=== PATIENT | male | born 1975 | race Caucasian/White ===

== ENCOUNTER 2019-10-28 17:40 | Emergency (ER) | payer SELFPAY ==
[2019-10-28] MEDS ORDERED: Sodium Chloride 0.9% 10 ML Syringe FLUSH PRN (18:43)
[2019-10-28] MEDS ORDERED: Sodium Chloride 0.9% 1,000 ML IV SCH (18:45)
--- NOTE | 2019-10-28 19:15 | EDM.PDOC ---
ED HPI GENERAL MEDICAL PROBLEM - General Chief Complaint: Neurological Problem Stated Complaint: LIGHTHEADED 2 WEEKS ALMOST PASSED OUT TENSED Time Seen by Provider: 10/28/19 18:40 Source of Information: Reports: Patient, RN Notes Reviewed - History of Present Illness INITIAL COMMENTS - FREE TEXT/NARRATIVE: 44 yr old male has been feeling weak, lightheaded, dizzy on and off for the last 3 wks. Did have some voiding sx about 3 wks ago but that went away. Has had some L ear congestion but no cough, fever, chills or difficulty breathing. Today sitting in a chair he became weak, dizzy, lightheaded, almost passed out. No chest pain. No abd pain, vomiting or diarrhea. He had an abnl stress test a few months ago, had a cardiac cath 2 months ago that was nl, no blockage. - Related Data Allergies Allergy/AdvReac Type Severity Reaction Status Date / Time No Known Allergies Allergy Verified 10/28/19 17:52 Home Meds: Home Meds Cyclobenzaprine [Flexeril] 10 mg PO ASDIRECTED 10/28/19 [History] LORazepam [Ativan] 1 tab PO ASDIRECTED PRN 10/28/19 [History] Past Medical History Genitourinary History: Reports: Renal Calculus - Past Surgical History Cardiovascular Surgical History: Reports: Other (See Below) Other Cardiovascular Surgeries/Procedures: cardiac cath, echo, stress test GI Surgical History: Reports: Cholecystectomy Social & Family History - Tobacco Use Smoking Status *Q: Never Smoker Second Hand Smoke Exposure: No - Caffeine Use Caffeine Use: Reports: None - Recreational Drug Use Recreational Drug Use: No ED ROS GENERAL - Review of Systems Review Of Systems: See Below Constitutional: Denies: Fever, Chills, Diaphoresis HEENT: Reports: No Symptoms Respiratory: Denies: Shortness of Breath, Cough Cardiovascular: Denies: Chest Pain GI/Abdominal: Denies: Abdominal Pain, Diarrhea, Nausea, Vomiting Musculoskeletal: Denies: Shoulder Pain, Arm Pain, Back Pain Skin: Denies: Rash Neurological: Reports: Dizziness. Denies: Numbness, Tingling, Trouble Speaking, Weakness ED EXAM, DIZZINESS - Physical Exam Exam: See Below General Appearance: Alert, No Apparent Distress Eye Exam: Bilateral Eye: PERRL Head Exam: Atraumatic. No: Facial Swelling Neck: Supple Respiratory/Chest: No Respiratory Distress, Lungs Clear, Normal Breath Sounds Cardiovascular: Tachycardia GI/Abdominal: Soft, Non-Tender Neurological: Alert, No Motor/Sensory Deficits Extremities: Normal Inspection. No: Pedal Edema, Leg Pain, Increased Warmth, Redness Skin Exam: Warm, Dry, Normal Color, No Rash EKG INTERPRETATION EKG Date: 10/28/19 Rhythm: Other (sinus tach) Rate (Beats/Min): 119 [place]: Normal P-Wave: Present QRS: Normal ST-T: Normal Course - Vital Signs Last Recorded V/S: Last Vital Signs Temp 98 F 10/28/19 17:50 Pulse 127 H 10/28/19 17:50 Resp 16 10/28/19 17:50 BP 148/105 H 10/28/19 17:50 Pulse Ox 97 10/28/19 17:50 - Orders/Labs/Meds Orders: Active Orders 24 hr Category Date Time Status Peripheral IV Insertion Adult [OM.PC] Stat Oth 10/28/19 18:43 Ordered Labs: Laboratory Tests 10/28/19 10/28/19 10/28/19 Range/Units 19:00 19:00 19:13 WBC 9.71 H (4.23-9.07) K/mm3 RBC 6.15 H (4.63-6.08) M/mm3 Hgb 17.1 (13.7-17.5) gm/dl Hct 50.9 (40.1-51.0) % MCV 82.8 (79.0-92.2) fl MCH 27.8 (25.7-32.2) pg MCHC 33.6 (32.2-35.5) g/dl RDW Std Deviation 42.6 (35.1-43.9) fL Plt Count 422 H (163-337) K/mm3 MPV 8.8 L (9.4-12.3) fl Neut % (Auto) 66.5 (34.0-67.9) % Lymph % (Auto) 25.1 (21.8-53.1) % [place] % (Auto) 6.7 (5.3-12.2) % Eos % (Auto) 0.9 (0.8-7.0) Baso % (Auto) 0.6 (0.1-1.2) % Neut # (Auto) 6.45 H (1.78-5.38) K/mm3 Lymph # (Auto) 2.44 (1.32-3.57) K/mm3 [place] # (Auto) 0.65 (0.30-0.82) K/mm3 Eos # (Auto) 0.09 (0.04-0.54) K/mm3 Baso # (Auto) 0.06 (0.01-0.08) K/mm3 Manual Slide Review Abnormal smear Sodium 138 (136-145) mEq/L Potassium 3.5 (3.5-5.1) mEq/L Chloride 100 (98-107) mEq/L Carbon Dioxide 28 (21-32) mEq/L Anion Gap 13.5 (5-15) BUN 8 (7-18) mg/dL Creatinine 0.8 (0.7-1.3) mg/dL Est Cr Clr Drug Dosing 120.40 mL/min Estimated GFR (MDRD) > 60 (>60) mL/min BUN/Creatinine Ratio 10.0 L (14-18) Glucose 137 H (74-106) mg/dL Calcium 9.2 (8.5-10.1) mg/dL Total Bilirubin 0.5 (0.2-1.0) mg/dL AST 45 H (15-37) U/L ALT 88 H (16-63) U/L Alkaline Phosphatase 96 (46-116) U/L Troponin I < 0.017 (0.00-0.056) ng/mL Total Protein 7.9 (6.4-8.2) g/dl Albumin 3.9 (3.4-5.0) g/dl Globulin 4.0 gm/dL Albumin/Globulin Ratio 1.0 (1-2) TSH 3rd Generation 3.048 (0.358-3.74) uIU/mL Urine Color Yellow (Yellow) Urine Appearance Clear (Clear) Urine pH 6.5 (5.0-8.0) Ur Specific [place] 1.020 (1.005-1.030) Urine Protein Negative (Negative) Urine Glucose (UA) Negative (Negative) Urine Ketones Negative (Negative) Urine Occult Blood Negative (Negative) Urine Nitrite Negative (Negative) Urine Bilirubin Negative (Negative) Urine Urobilinogen 0.2 (0.2-1.0) Ur Leukocyte Esterase Negative (Negative) Meds: Medications Discontinued Medications Generic Name Dose Route Start Last Admin Trade Name Freq PRN Reason Stop Dose Admin Amoxicillin 1,000 mg 10/28/19 20:20 10/28/19 20:27 Amoxil PO 10/28/19 20:21 1,000 mg ONETIME ONE Administration Sodium Chloride 1,000 mls @ 999 mls/hr 10/28/19 18:45 10/28/19 19:10 Normal Saline IV 999 mls/hr ONETIME EARLE Administration Sodium Chloride 10 ml 10/28/19 18:43 10/28/19 19:11 Saline Flush FLUSH 10 ml ASDIRECTED PRN Administration Keep Vein Open - Re-Assessments/Exams Free Text/Narrative Re-Assessment/Exam: 10/29/19 01:42 Labs all came back nl including TSH and trop. Resting comfortably at time of discharge, discharge instr. as documented. Departure - Departure Time of Disposition: 20:32 Disposition: Home, Self-Care 01 Preliminary Cause of *Q: Sepsis & Multi System Organ Failure Clinical Impression: Syncope, near, Acute serous otitis media of left ear - Discharge Information Instructions: Near-Syncope, Otitis Media, Adult Referrals: PCP,None [Primary Care Provider] - Forms: ED Department Discharge Additional Instructions: Amoxicillin 1000 mg twice daily for 1 week or until gone. Order for carotid US has been written and will be sent to Radiology. They will call you in the morning to set up a time for that. See one of our providers at our [facility] medical clinic for complete physical. Call [phone] for appt. At that time they can look at your A1C and also check cholesterol and lipid profile. Drink plenty of water to maintain hydration. Healthy diet. Work on a safe gradual exercise program. Return to ED as needed. Sepsis Event Note (ED) - Evaluation Sepsis Screening Result: No Definite Risk - Focused Exam Vital Signs: Vital Signs Temp Pulse Resp BP Pulse Ox 10/28/19 17:50 98 F 127 H 16 148/105 H 97 - My Orders Last 24 Hours: My Active Orders 10/28/19 18:43 Peripheral IV Insertion Adult [OM.PC] Stat - Assessment/Plan Last 24 Hours: My Active Orders 10/28/19 18:43 Peripheral IV Insertion Adult [OM.PC] Stat
[2019-10-28] MEDS ORDERED: Amoxicillin 500 MG Cap PO ONE (20:20)
== END 2019-10-28 20:50 | disposition home or self-care (01) ==
LOC: JD.ED 17:40
DX: H65.02 Acute serous otitis media, left ear (principal); R55 Syncope and collapse
CPT/HCPCS: 36415; 80053; 81003; 84443; 84484; 85025; 93005; 96360; 99284; A9270; J7030; 93010; 99283